=== PATIENT | female | born 2000 | race Asian ===

== ENCOUNTER 2019-12-24 09:27 | Emergency (ER) | payer OTHER ==
[2019-12-24] MEDS ORDERED: Ibuprofen TAB* 600 MG PO ONE (09:36)
[2019-12-24] MEDS ORDERED: Acetaminophen TAB* 325 MG PO ONE (09:36)
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
[2019-12-24 12:11] VITALS: BP 92/55
== END 2019-12-24 12:10 | disposition home or self-care (01) ==
LOC: ED 09:27
DX: S93.402A Sprain of unspecified ligament of left ankle, initial encounter (principal); M79.605 Pain in left leg; X50.9XXA Other and unspecified overexertion or strenuous movements or postures, initial encounter; Y92.9 Unspecified place or not applicable
CPT/HCPCS: 99282; A9270-GY